=== PATIENT | female | born 1970 | race African-American/Black ===

== ENCOUNTER 2017-06-19 23:14 | Emergency (ER) | payer MEDICAID ==
[~2017-06-19] VITALS: Ht 165.1 cm; Wt 114.0 kg
[~2017-06-19 23:14] MED LIST: ALBU18HF2 IH; AMLO5TAB88 PO; ASPI-1158 PO; ASPI-867 PO; AZIT500T5 PO; CHOL100044 PO; CYCL5TAB PO; DEXTL PO; EDARBYCLOR; FERR325T6 PO; FLUO40CA49 PO; FURO-151 PO; HYDR50TA54 PO; ISOS1TAB PO; LOSA25TA3 PO; OMEP20TA2 PO; POTA10CA42 PO; POTA20TA82 PO; SPIR25TA PO; TAM75 PO
[2017-06-19 23:24] VITALS: BP 227/123
== END 2017-06-20 00:15 | disposition left against medical advice (07) ==
LOC: ER 06-20 00:07
DX: R06.02 Shortness of breath (principal); R07.9 Chest pain, unspecified; Z53.21 Procedure and treatment not carried out due to patient leaving prior to being seen by health care provider
CPT/HCPCS: 93005

== ENCOUNTER 2018-06-22 12:59 | Inpatient (IN) | payer MEDICAID ==
[~2018-06-22] VITALS: Ht 165.1 cm; Wt 121.6 kg
[~2018-06-22 12:59] MED LIST changes: -ASPI-867 PO; -AZIT500T5 PO; +CARV3.1242 PO; -EDARBYCLOR; -FLUO40CA49 PO; +FLUT1DIS2 IH; +HYDR25TA PO; -POTA10CA42 PO; -TAM75 PO
[2018-06-22] MEDS ORDERED: FUROSEMIDE 40MG/4ML VIAL IV ONE (14:45)
[2018-06-22] MEDS ORDERED: LORAZEPAM 1MG TABLET PO ONE (14:45)
[2018-06-22 14:56] LABS: BASOPHILS % 0.6 % (0.0-2.0); HEMATOCRIT. 34.8 % (36.0-48.0); LYMPHOCYTES % 15.5 % (20.0-50.0); MEAN CORPUSCULAR HEMOGLOBIN 27.7 pg (28.0-32.0); MEAN CORPUSCULAR VOLUME 87.6 fL (81.0-99.0); MEAN PLATELET VOLUME 8.6 fl (7.4-10.4); MONOCYTES % 4.9 % (2.0-8.0); PLATELET 501 x1000/uL (130-400); RED BLOOD CELL COUNT 3.98 mill/uL (4.2-5.4); RED CELL DISTRIBUTION WIDTH 15.6 % (11.6-14.6)
[2018-06-22 15:04] LABS: CHLORIDE 102 mEq/L (98-107)
[2018-06-22 15:09] LABS: ETHANOL BLOOD < 10 mg/dL
[2018-06-22 15:12] LABS: PROTHROMBIN TIME 10.2 sec (9.6-11.0)
[2018-06-22 15:28] LABS: *AMPHETAMINES SCREEN URINE NEGATIVE (NEGATIVE); *BARBITURATES SCREEN URINE NEGATIVE (NEGATIVE); *BENZODIAZEPINES SCREEN URINE NEGATIVE (NEGATIVE); HCG SCREEN NEGATIVE
[2018-06-22 15:29] LABS: *COCAINE SCREEN URINE NEGATIVE (NEGATIVE); CANNABINOID URINE SCREEN NEGATIVE (NEGATIVE); METHADONE URINE SCREEN NEGATIVE (NEGATIVE); OPIATES URINE SCREEN NEGATIVE (NEGATIVE); PHENCYCLIDINE URINE SCREEN NEGATIVE (NEGATIVE)
[2018-06-22] MEDS ORDERED: POTASSIUM CHLORIDE 20MEQ TABLET SR PO NR (16:00)
[2018-06-22] MEDS ORDERED: NITROGLYCERIN OINT 1GM/INCH UDPKT TD ONE (16:45)
[2018-06-22] MEDS ORDERED: IPRATROPIUM BROMIDE (0.02%) 0.5MG/2.5ML NEB HHN STA (16:45)
[2018-06-22] MEDS ORDERED: ASPIRIN 325MG EC TABLET PO ONE (16:45)
[2018-06-22] MEDS ORDERED: ALBUTEROL (0.083%) 2.5MG/3ML NEB HHN STA (16:45)
[2018-06-22] MEDS ORDERED: ONDANSETRON HCL 4MG/2ML INJ IV PRN (19:30)
[2018-06-22] MEDS ORDERED: DOCUSATE SODIUM 100MG CAPSULE PO PRN (19:30)
[2018-06-22] MEDS ORDERED: ACETAMINOPHEN 325MG TABLET PO PRN (19:30)
[2018-06-22] MEDS ORDERED: MAGNESIUM/ALUMINUM HYDROXIDE/SIMETHICONE 30ML UDC PO PRN (19:30)
[2018-06-22] MEDS: HYDROCODONE/ACETAMINOPHEN 5/325MG TABLET PO PRN (20:15)
[2018-06-22 20:48] LABS: CHLORIDE 104 mEq/L (98-107)
[2018-06-22 21:45] VITALS: BP 147/89
[2018-06-22 22:08] VITALS: BP 147/89
[2018-06-22 22:15] VITALS: BP 147/89
[2018-06-22] MEDS: ENOXAPARIN 40MG/0.4ML SYR SUBCUT SCH (23:39)
[2018-06-23 00:42] LABS: CREATINE KINASE 50 IU/L (26-192)
[2018-06-23 00:43] LABS: CREATINE KINASE MB FRACTION < 1.0 ng/mL (0.5-3.6)
[2018-06-23 04:00] VITALS: BP 132/93
[2018-06-23 06:26] LABS: BASOPHILS % 0.4 % (0.0-2.0); EOSINOPHILS % 1.7 % (0.0-5.0); HEMATOCRIT. 31.2 % (36.0-48.0); MEAN CORPUSCULAR HEMOGLOBIN 28.1 pg (28.0-32.0); MEAN CORPUSCULAR VOLUME 87.6 fL (81.0-99.0); MEAN PLATELET VOLUME 8.5 fl (7.4-10.4); MONOCYTES % 6.8 % (2.0-8.0); NEUTROPHILS % 62.1 % (40.0-76.0); PLATELET 415 x1000/uL (130-400); RED BLOOD CELL COUNT 3.56 mill/uL (4.2-5.4); RED CELL DISTRIBUTION WIDTH 15.8 % (11.6-14.6)
[2018-06-23 07:02] LABS: LDL CHOLESTEROL 88 mg/dL (5-100)
[2018-06-23 07:03] LABS: CREATINE KINASE 49 IU/L (26-192); HDL CHOLESTEROL 47 mg/dL (40-59)
[2018-06-23 07:05] LABS: CREATINE KINASE MB FRACTION < 1.0 ng/mL (0.5-3.6)
[2018-06-23 08:00] VITALS: BP 143/99
[2018-06-23] MEDS: ASPIRIN 81MG EC TABLET PO SCH (09:04)
[2018-06-23] MEDS: ENOXAPARIN 40MG/0.4ML SYR SUBCUT SCH (09:05)
[2018-06-23] MEDS: HYDROCODONE/ACETAMINOPHEN 5/325MG TABLET PO PRN (09:21)
[2018-06-23] MEDS: CLONIDINE 0.1MG TABLET PO PRN (09:21)
[2018-06-23] MEDS ORDERED: SERT50TA MT (11:58)
[2018-06-23 12:00] VITALS: BP 151/87
[2018-06-23] MEDS ORDERED: LOSARTAN POTASSIUM 25 MG TABLET PO SCH (12:00)
[2018-06-23] MEDS ORDERED: ASPIRIN 81MG TABLET PO SCH (12:00)
[2018-06-23] MEDS ORDERED: HYDROCHLOROTHIAZIDE 25MG TABLET PO SCH (12:00)
[2018-06-23] MEDS ORDERED: CYCLOBENZAPRINE 10MG TABLET PO PRN (12:00)
[2018-06-23] MEDS ORDERED: AMLODIPINE 5MG TABLET PO SCH (12:00)
[2018-06-23] MEDS: CHOLECALCIFEROL (D3) 1000 UNIT TABLET PO SCH (13:07)
[2018-06-23] MEDS: SERTRALINE HCL 50MG TABLET PO SCH (13:09)
[2018-06-23] MEDS: POTASSIUM CHLORIDE 20MEQ TABLET SR PO SCH (13:09)
[2018-06-23] MEDS: CARVEDILOL 3.125 MG TABLET PO SCH ×2 (13:09→20:09)
[2018-06-23] MEDS: FERROUS SULFATE 325MG TABLET PO SCH (13:10)
[2018-06-23] MEDS: OMEPRAZOLE 20MG CAPSULE EXTENDED RELEASE PO SCH (13:10)
[2018-06-23 16:00] VITALS: BP 149/96
[2018-06-23 19:57] VITALS: BP 160/96
[2018-06-23] MEDS: ENOXAPARIN 30MG/0.3ML SYR SUBCUT SCH (20:09)
[2018-06-23] MEDS: HYDROXYZINE 25MG TABLET PO PRN (20:09)
[2018-06-23] MEDS: AMLODIPINE 5MG TABLET PO SCH (20:16)
[2018-06-23] MEDS: IPRATROPIUM/ALBUTEROL 0.5-3(2.5)MG/3ML NEB INH PRN (21:17)
[2018-06-23 23:57] VITALS: BP 171/78
[2018-06-24] MEDS: CLONIDINE 0.1MG TABLET PO PRN ×2 (00:02→05:56)
[2018-06-24 04:00] VITALS: BP 175/111
[2018-06-24 07:15] LABS: CHLORIDE 104 mEq/L (98-107)
[2018-06-24 07:22] LABS: BASOPHILS % 0.4 % (0.0-2.0); EOSINOPHILS % 2.7 % (0.0-5.0); HEMATOCRIT. 32.4 % (36.0-48.0); HEMOGLOBIN. 10.4 g/dL (12.0-16.0); LYMPHOCYTES % 23.5 % (20.0-50.0); MEAN CORPUSCULAR VOLUME 87.8 fL (81.0-99.0); MEAN PLATELET VOLUME 8.4 fl (7.4-10.4); MONOCYTES % 6.3 % (2.0-8.0); NEUTROPHILS % 67.1 % (40.0-76.0); PLATELET 408 x1000/uL (130-400); RED BLOOD CELL COUNT 3.69 mill/uL (4.2-5.4); RED CELL DISTRIBUTION WIDTH 15.4 % (11.6-14.6)
[2018-06-24 08:00] VITALS: BP 138/97
[2018-06-24] MEDS: IPRATROPIUM/ALBUTEROL 0.5-3(2.5)MG/3ML NEB INH PRN (08:55)
[2018-06-24] MEDS: CHOLECALCIFEROL (D3) 1000 UNIT TABLET PO SCH (09:11)
[2018-06-24] MEDS: OMEPRAZOLE 20MG CAPSULE EXTENDED RELEASE PO SCH (09:11)
[2018-06-24] MEDS: SPIRONOLACTONE 25MG TABLET PO SCH (09:12)
[2018-06-24] MEDS: FUROSEMIDE 40MG TABLET PO SCH (09:13)
[2018-06-24] MEDS: AMLODIPINE 5MG TABLET PO SCH ×2 (09:13→20:11)
[2018-06-24] MEDS: POTASSIUM CHLORIDE 20MEQ TABLET SR PO SCH (09:13)
[2018-06-24] MEDS: CARVEDILOL 3.125 MG TABLET PO SCH ×2 (09:13→20:11)
[2018-06-24] MEDS: FERROUS SULFATE 325MG TABLET PO SCH ×3 (09:14→17:34)
[2018-06-24] MEDS: ENOXAPARIN 30MG/0.3ML SYR SUBCUT SCH ×2 (09:15→20:11)
[2018-06-24] MEDS: SERTRALINE HCL 50MG TABLET PO SCH (09:20)
[2018-06-24] MEDS: LOSARTAN POTASSIUM 100 MG TABLET PO SCH (09:20)
[2018-06-24] MEDS: ASPIRIN 81MG EC TABLET PO SCH (10:41)
[2018-06-24] MEDS: HYDROCODONE/ACETAMINOPHEN 5/325MG TABLET PO PRN (10:49)
[2018-06-24 12:00] VITALS: BP 136/89
[2018-06-24] MEDS: LORAZEPAM 1MG TABLET PO PRN ×3 (14:41→21:03)
[2018-06-24 16:00] VITALS: BP 149/96
[2018-06-24 20:00] VITALS: BP 149/103
[2018-06-24] MEDS: HYDROXYZINE 25MG TABLET PO PRN (20:37)
[2018-06-25] VITALS: BP 150/80
[2018-06-25 04:00] VITALS: BP 155/85
[2018-06-25] MEDS: OMEPRAZOLE 20MG CAPSULE EXTENDED RELEASE PO SCH (06:36)
[2018-06-25] MEDS: HYDROXYZINE 25MG TABLET PO PRN (06:37)
[2018-06-25] MEDS: HYDROCODONE/ACETAMINOPHEN 5/325MG TABLET PO PRN (06:37)
[2018-06-25 08:00] VITALS: BP_SYST 128; BP_SYST 147; BP_DIAS 102; BP_DIAS 104
[2018-06-25] MEDS: IPRATROPIUM/ALBUTEROL 0.5-3(2.5)MG/3ML NEB INH PRN (08:22)
[2018-06-25] MEDS: ASPIRIN 81MG EC TABLET PO SCH (08:55)
[2018-06-25] MEDS: LOSARTAN POTASSIUM 100 MG TABLET PO SCH (08:56)
[2018-06-25] MEDS: FERROUS SULFATE 325MG TABLET PO SCH (08:56)
[2018-06-25] MEDS: AMLODIPINE 5MG TABLET PO SCH (08:56)
[2018-06-25] MEDS: LORAZEPAM 1MG TABLET PO PRN (08:56)
[2018-06-25] MEDS: CHOLECALCIFEROL (D3) 1000 UNIT TABLET PO SCH (08:57)
[2018-06-25] MEDS: SPIRONOLACTONE 25MG TABLET PO SCH ×2 (08:57→09:00)
[2018-06-25] MEDS: SERTRALINE HCL 50MG TABLET PO SCH (08:57)
[2018-06-25] MEDS: FUROSEMIDE 40MG TABLET PO SCH (08:57)
[2018-06-25] MEDS: CARVEDILOL 3.125 MG TABLET PO SCH (08:57)
[2018-06-25] MEDS: POTASSIUM CHLORIDE 20MEQ TABLET SR PO SCH (08:57)
[2018-06-25] MEDS: ENOXAPARIN 30MG/0.3ML SYR SUBCUT SCH (09:00)
[2018-06-25 12:00] VITALS: BP 156/98
[2018-06-25 14:58] VITALS: BP 156/98
== END 2018-06-25 16:45 | disposition home or self-care (01) | DRG 203 ==
LOC: ER 12:59 → 7WST 17:06 → ENRESERV 20:53
PROVIDERS: ADMIT Internal Medicine; ATTEND Internal Medicine
DX: M94.0 Chondrocostal junction syndrome [Tietze] (principal); I11.0 Hypertensive heart disease with heart failure; I50.9 Heart failure, unspecified; I20.9 Angina pectoris, unspecified; R07.89 Other chest pain; E78.5 Hyperlipidemia, unspecified; F10.20 Alcohol dependence, uncomplicated; R06.89 Other abnormalities of breathing; J45.909 Unspecified asthma, uncomplicated; F17.200 Nicotine dependence, unspecified, uncomplicated; F32.9 Major depressive disorder, single episode, unspecified; F41.9 Anxiety disorder, unspecified; K21.9 Gastro-esophageal reflux disease without esophagitis; Z59.0 Homelessness; Z79.82 Long term (current) use of aspirin
CPT/HCPCS: 36415; 71045; 80048; 80061; 80305; 80320; 82550; 82553; 83605; 83735; 83880; 84443; 84484; 84703; 93005; 93306; 93970; 94640; 96374; 97162; 99285; J1650; J1940; J7611; J7620; G0480